=== PATIENT | male | born 1950 | race African-American/Black ===

== ENCOUNTER 2023-08-04 22:53 | Inpatient (IN) | payer OTHER ==
[2023-08-04 22:59] VITALS: BMI 22.6
[2023-08-04] MEDS ORDERED: ACETAMINOPHEN INJECTION 100 ML IVPB ONE (23:53)
[2023-08-04] MEDS ORDERED: ONDANSETRON 4 MG/2 ML VIAL ONE (23:53)
[2023-08-04] MEDS ORDERED: POLYETHYLENE GLYCOL (HEALTHYLAX) 3350 17 GM PACKET ONE (23:59)
[2023-08-05] MEDS: ACETAMINOPHEN 1000 MG/100 ML BAG IVPB ONE (00:43)
[2023-08-05] MEDS: POLYETHYLENE GLYCOL (HEALTHYLAX) 3350 17 GM PACKET PO ONE (00:43)
[2023-08-05] MEDS: ONDANSETRON 4 MG/2 ML VIAL IVPUSH ONE (00:43)
[2023-08-05 01:02] LABS: HEMATOCRIT 41.8 % (35.4-49); HEMOGLOBIN 14.3 GM/dL (11.7-16.9); MCH 27.4 pg (25.7-33.7); MCHC 34.1 g/dl (32.0-35.9); MEAN CELL VOLUME 80.3 fl (80-96); MEAN PLT VOLUME 8.9 fl (7.5-11.1); PLATELET COUNT 157 10^3/uL (134-434); RBC 5.21 M/mm3 (4.00-5.60); RDW 14.2 % (11.9-15.9); WHITE BLOOD COUNT 13.1 K/mm3 (4.0-10.0)
[2023-08-05 01:17] LABS: POTASSIUM 3.9 mmol/L (3.5-5.1)
[2023-08-05 01:19] LABS: CALCIUM 9.6 mg/dL (8.5-10.1)
[2023-08-05 01:20] LABS: ALBUMIN 3.5 g/dl (3.4-5.0); BLOOD UREA NITROGEN 31.3 mg/dL (7-18)
[2023-08-05 01:23] LABS: CREATININE 1.5 mg/dL (0.55-1.3)
[2023-08-05 01:24] LABS: TOT PROT 7.8 g/dl (6.4-8.2)
[2023-08-05 01:25] LABS: BILIRUBIN,TOTAL 1.2 mg/dL (0.2-1)
[2023-08-05 01:38] LABS: INR 1.15 (0.83-1.09); PROTHROMBIN TIME (PATIENT) 12.9 SEC (9.7-13.0)
[2023-08-05] MEDS ORDERED: VANCOMYCIN 1 GRAM (PRE-DOCKED) 1,000 MG/250 ML BAG IVPB ONE (02:59)
[2023-08-05] MEDS ORDERED: PIPERACILLIN/TAZOB 3.375 GM 3.375 GM/50 ML BAG IVPB ONE (02:59)
[2023-08-05] MEDS: PIPERACILLIN/TAZOB 3.375 GM 3.375 GM in DEXTROSE 5%-WATER - 50 ML IVPB ONE (03:13)
[2023-08-05 03:49] LABS: URINE APPEARANCE CLOUDY; URINE COLOR YELLOW
[2023-08-05 03:50] LABS: PH,URINE 5.5 (5.0-8.0); URINE BILIRUBIN NEGATIVE (NEGATIVE); URINE GLUCOSE (UA) NEGATIVE (NEGATIVE); URINE KETONE NEGATIVE (NEGATIVE)
[2023-08-05 03:51] LABS: URINE LEUK ESTERASE 1+ (NEGATIVE); URINE NITRITE Positive (NEGATIVE); URINE PROTEIN 2+ (NEGATIVE); URINE RBC 41.5 /uL (0-23.9)
[2023-08-05 03:52] LABS: EPI CELLS 3.2 /uL (0-25.1); HYALINE CASTS 1.6 /uL (0-3.1); URINE BACTERIA 18733.6 /uL (0-1359); URINE WBC 596.2 /uL (0-25.8)
[2023-08-05] MEDS: VANCOMYCIN 1,000 MG in DEXTROSE 5%-WATER - 250 ML IVPB ONE (03:56)
[2023-08-05] MEDS: SODIUM CHLORIDE 1,000 ML IV SCH (14:00)
[2023-08-05] MEDS: HEPARIN NA (PORCINE) 5,000 UNITS/ML 1ML VIAL SQ SCH (14:59)
[2023-08-05] MEDS: ACETAMINOPHEN 1000 MG/100 ML BAG IVPB PRN (21:07)
[2023-08-06 08:57] LABS: BASO % 0.4 % (0-2.0); EOS % 7.6 % (0-4.5); HEMATOCRIT 36.6 % (35.4-49); HEMOGLOBIN 12.3 GM/dL (11.7-16.9); LYMPH % 12.1 % (8-40); MCH 27.3 pg (25.7-33.7); MCHC 33.6 g/dl (32.0-35.9); MEAN PLT VOLUME 9.4 fl (7.5-11.1); MONO % 5.8 % (3.8-10.2); NEUT % 74.1 % (42.8-82.8); PLATELET COUNT 183 10^3/uL (134-434); RBC 4.52 M/mm3 (4.00-5.60); RDW 14.4 % (11.9-15.9)
[2023-08-06 09:14] LABS: POTASSIUM 3.8 mmol/L (3.5-5.1)
[2023-08-06 09:15] LABS: CALCIUM 9.2 mg/dL (8.5-10.1)
[2023-08-06 09:16] LABS: BLOOD UREA NITROGEN 26.8 mg/dL (7-18); MAGNESIUM 2.8 mg/dL (1.8-2.4)
[2023-08-06 09:19] LABS: CREATININE 1.4 mg/dL (0.55-1.3); PHOSPHOROUS 3.2 mg/dL (2.5-4.9)
[2023-08-06] MEDS: CEFTRIAXONE 1 GM in DEXTROSE 5%-WATER - 50 ML IVPB SCH (11:12)
[2023-08-07] MEDS: ACETAMINOPHEN 1000 MG/100 ML BAG IVPB ONE (02:03)
[2023-08-07 08:40] LABS: BASO % 0.3 % (0-2.0); EOS % 2.9 % (0-4.5); HEMATOCRIT 33.4 % (35.4-49); HEMOGLOBIN 11.3 GM/dL (11.7-16.9); LYMPH % 10.6 % (8-40); MCH 27.3 pg (25.7-33.7); MCHC 33.7 g/dl (32.0-35.9); MEAN CELL VOLUME 81.1 fl (80-96); MEAN PLT VOLUME 8.8 fl (7.5-11.1); MONO % 6.7 % (3.8-10.2); NEUT % 79.5 % (42.8-82.8); PLATELET COUNT 168 10^3/uL (134-434); RBC 4.12 M/mm3 (4.00-5.60); RDW 14.2 % (11.9-15.9); WHITE BLOOD COUNT 9.8 K/mm3 (4.0-10.0)
[2023-08-07 08:52] LABS: POTASSIUM 3.8 mmol/L (3.5-5.1)
[2023-08-07 08:57] LABS: BLOOD UREA NITROGEN 22.7 mg/dL (7-18); CALCIUM 8.9 mg/dL (8.5-10.1); MAGNESIUM 2.5 mg/dL (1.8-2.4)
[2023-08-07 09:01] LABS: CREATININE 1.1 mg/dL (0.55-1.3)
[2023-08-07 09:02] LABS: BILIRUBIN,TOTAL 0.7 mg/dL (0.2-1); TOT PROT 6.1 g/dl (6.4-8.2)
[2023-08-07 09:06] LABS: ALBUMIN 2.6 g/dl (3.4-5.0)
[2023-08-07] MEDS: DEXTROSE 5%-LACTATED RINGERS 1,000 ML IV SCH (16:40)
[2023-08-07] MEDS: ACETAMINOPHEN 1000 MG/100 ML BAG IVPB PRN (16:51)
[2023-08-07] MEDS: PIPERACILLIN/TAZOB 3.375 GM 3.375 GM in DEXTROSE 5%-WATER - 50 ML IVPB SCH (21:37)
[2023-08-08 07:52] LABS: BASO % 0.5 % (0-2.0); EOS % 1.1 % (0-4.5); HEMATOCRIT 36.2 % (35.4-49); HEMOGLOBIN 11.8 GM/dL (11.7-16.9); LYMPH % 11.2 % (8-40); MCH 26.6 pg (25.7-33.7); MCHC 32.8 g/dl (32.0-35.9); MEAN CELL VOLUME 81.4 fl (80-96); MEAN PLT VOLUME 8.4 fl (7.5-11.1); MONO % 7.6 % (3.8-10.2); NEUT % 79.6 % (42.8-82.8); PLATELET COUNT 179 10^3/uL (134-434); RBC 4.45 M/mm3 (4.00-5.60); RDW 14.1 % (11.9-15.9); WHITE BLOOD COUNT 8.4 K/mm3 (4.0-10.0)
[2023-08-08 08:11] LABS: POTASSIUM 3.6 mmol/L (3.5-5.1)
[2023-08-08 08:22] LABS: CALCIUM 8.7 mg/dL (8.5-10.1)
[2023-08-08 08:23] LABS: ALBUMIN 2.5 g/dl (3.4-5.0); BLOOD UREA NITROGEN 16.2 mg/dL (7-18)
[2023-08-08 08:26] LABS: BILIRUBIN,TOTAL 0.6 mg/dL (0.2-1); CREATININE 1.3 mg/dL (0.55-1.3); MAGNESIUM 2.3 mg/dL (1.8-2.4)
[2023-08-08 09:32] LABS: TOT PROT 6.3 g/dl (6.4-8.2)
[2023-08-08] MEDS ORDERED: FENTANYL CITRATE/PF 50 MCG/ML VIAL ONE ×5 (12:13→15:54)
[2023-08-08] MEDS ORDERED: PROPOFOL 20 ML ONE (12:14)
[2023-08-08] MEDS ORDERED: ROCURONIUM BROMIDE 50 MG/5 ML SYRINGE ONE (12:15)
[2023-08-08] MEDS ORDERED: HYDROmorphone HCl 2 MG/ML VIAL ONE (12:44)
[2023-08-08] MEDS ORDERED: DEXTROSE 5%-0.45% SALINE 1,000 ML IV SCH (13:00)
[2023-08-08] MEDS ORDERED: SEVOFLURANE 250 ML BTL ONE (13:47)
[2023-08-08] MEDS ORDERED: ETOMIDATE 20 MG/10 ML VIAL IVPUSH ONE (13:52)
[2023-08-08] MEDS ORDERED: SUGAMMADEX SODIUM 200 MG/2 ML VIAL ONE (13:55)
[2023-08-08] MEDS ORDERED: ONDANSETRON 4 MG/2 ML VIAL ONE (13:55)
[2023-08-08] MEDS ORDERED: ONDANSETRON 4 MG/2 ML VIAL IVPUSH PRN ×2 (14:21→14:49)
[2023-08-08] MEDS ORDERED: LACTATED RINGERS SOLUTION 1,000 ML IV SCH (14:30)
[2023-08-08] MEDS ORDERED: HYDROmorphone HCl 2 MG/ML VIAL IVPB PRN (14:49)
[2023-08-08] MEDS: ACETAMINOPHEN 1000 MG/100 ML BAG IVPB ONE (16:00)
[2023-08-08] MEDS: ACETAMINOPHEN INJECTION 100 ML IVPB ONE (16:00)
[2023-08-08] MEDS: DEXTROSE 5%-0.45% SALINE 1,000 ML IV SCH (16:45)
[2023-08-08] MEDS: HYDROmorphone *PCA* 10MG/50ML DISP.SYRIN PCA SCH (16:45)
[2023-08-08] MEDS: PIPERACILLIN/TAZOB 3.375 GM 3.375 GM in DEXTROSE 5%-WATER - 50 ML IVPB SCH (18:00)
[2023-08-08] MEDS: PIPERACILLIN/TAZOBACTAM 3.375 GM VIAL IVPB ONE (18:00)
[2023-08-08] MEDS: ACETAMINOPHEN 1000 MG/100 ML BAG IVPB SCH (22:00)
[2023-08-08] MEDS: HEPARIN NA (PORCINE) 5,000 UNITS/ML 1ML VIAL SQ SCH (22:01)
[2023-08-09 07:08] LABS: BASO % 0.3 % (0-2.0); EOS % 0.6 % (0-4.5); HEMATOCRIT 36.8 % (35.4-49); HEMOGLOBIN 11.9 GM/dL (11.7-16.9); LYMPH % 11.8 % (8-40); MCH 26.4 pg (25.7-33.7); MCHC 32.2 g/dl (32.0-35.9); MEAN CELL VOLUME 81.9 fl (80-96); MEAN PLT VOLUME 8.6 fl (7.5-11.1); MONO % 6.5 % (3.8-10.2); NEUT % 80.8 % (42.8-82.8); PLATELET COUNT 245 10^3/uL (134-434); RBC 4.49 M/mm3 (4.00-5.60); RDW 14.3 % (11.9-15.9); WHITE BLOOD COUNT 12.4 K/mm3 (4.0-10.0)
[2023-08-09 07:34] LABS: POTASSIUM 4.2 mmol/L (3.5-5.1)
[2023-08-09 07:37] LABS: ALBUMIN 2.4 g/dl (3.4-5.0); BLOOD UREA NITROGEN 17.5 mg/dL (7-18); CALCIUM 8.5 mg/dL (8.5-10.1); MAGNESIUM 2.2 mg/dL (1.8-2.4)
[2023-08-09 07:40] LABS: CREATININE 1.7 mg/dL (0.55-1.3)
[2023-08-09 07:42] LABS: BILIRUBIN,TOTAL 0.4 mg/dL (0.2-1); TOT PROT 6.1 g/dl (6.4-8.2)
[2023-08-09] MEDS: AMINO ACIDS 4.25%/D5W 1,000 ML IV SCH ×2 (13:17→17:48)
[2023-08-09] MEDS: DEXTROSE 5%-0.45% SALINE 1,000 ML IV SCH (17:49)
[2023-08-11 06:57] LABS: BASO % 0.4 % (0-2.0); HEMOGLOBIN 11.2 GM/dL (11.7-16.9); LYMPH % 19.4 % (8-40); MCH 26.6 pg (25.7-33.7); MCHC 32.1 g/dl (32.0-35.9); MEAN PLT VOLUME 8.6 fl (7.5-11.1); MONO % 5.5 % (3.8-10.2); NEUT % 64.7 % (42.8-82.8); PLATELET COUNT 252 10^3/uL (134-434); RBC 4.21 M/mm3 (4.00-5.60); RDW 14.6 % (11.9-15.9); WHITE BLOOD COUNT 9.3 K/mm3 (4.0-10.0)
[2023-08-11 07:05] LABS: POTASSIUM 3.6 mmol/L (3.5-5.1)
[2023-08-11 07:09] LABS: ALBUMIN 2.4 g/dl (3.4-5.0); BLOOD UREA NITROGEN 13.7 mg/dL (7-18); CALCIUM 8.8 mg/dL (8.5-10.1); MAGNESIUM 1.9 mg/dL (1.8-2.4)
[2023-08-11 07:13] LABS: BILIRUBIN,TOTAL 0.4 mg/dL (0.2-1); TOT PROT 6.2 g/dl (6.4-8.2)
[2023-08-11] MEDS: HYDROmorphone *PCA* 10MG/50ML DISP.SYRIN PCA SCH (17:32)
[2023-08-11] MEDS: DEXTROSE 5%-0.45% SALINE 1,000 ML IV SCH (17:33)
[2023-08-11] MEDS: KCL 10 MEQ IVPB 10 MEQ/100 ML INFUS.BAG IVPB SCH (17:34)
[2023-08-11] MEDS: PIPERACILLIN/TAZOB 3.375 GM 3.375 GM in DEXTROSE 5%-WATER - 50 ML IVPB SCH (17:52)
[2023-08-11] MEDS: AMINO ACIDS 4.25%/D5W 1,000 ML IV SCH (20:02)
[2023-08-11] MEDS: HEPARIN NA (PORCINE) 5,000 UNITS/ML 1ML VIAL SQ SCH (21:43)
[2023-08-11] MEDS: ACETAMINOPHEN 1000 MG/100 ML BAG IVPB SCH (21:43)
[2023-08-12] MEDS ORDERED: AMINO ACIDS 4.25%/D5W 1,000 ML IV SCH (04:46)
[2023-08-12 07:31] LABS: BASO % 0.5 % (0-2.0); EOS % 6.6 % (0-4.5); HEMATOCRIT 33.7 % (35.4-49); HEMOGLOBIN 11.1 GM/dL (11.7-16.9); LYMPH % 16.3 % (8-40); MCH 26.8 pg (25.7-33.7); MCHC 32.8 g/dl (32.0-35.9); MEAN CELL VOLUME 81.5 fl (80-96); MEAN PLT VOLUME 8.1 fl (7.5-11.1); NEUT % 71.6 % (42.8-82.8); PLATELET COUNT 275 10^3/uL (134-434); RBC 4.14 M/mm3 (4.00-5.60); RDW 14.1 % (11.9-15.9); WHITE BLOOD COUNT 8.6 K/mm3 (4.0-10.0)
[2023-08-12 07:57] LABS: CALCIUM 8.7 mg/dL (8.5-10.1)
[2023-08-12 07:58] LABS: ALBUMIN 2.3 g/dl (3.4-5.0); BLOOD UREA NITROGEN 14.6 mg/dL (7-18); MAGNESIUM 1.7 mg/dL (1.8-2.4)
[2023-08-12 08:01] LABS: CREATININE 0.8 mg/dL (0.55-1.3)
[2023-08-12 08:02] LABS: BILIRUBIN,TOTAL 0.6 mg/dL (0.2-1)
[2023-08-12 08:03] LABS: TOT PROT 5.9 g/dl (6.4-8.2)
[2023-08-12] MEDS: MAGNESIUM 1GM/D5W 100ML - 100 ML IVPB IVPB ONE (11:12)
[2023-08-12] MEDS: ACETAMINOPHEN 325 MG TABLET (FP) PO SCH (11:12)
[2023-08-12] MEDS: KCL 10 MEQ IVPB 10 MEQ/100 ML INFUS.BAG IVPB SCH (11:32)
[2023-08-12] MEDS ORDERED: oxyCODONE HCL 5 MG TABLET PO SCH (12:00)
[2023-08-12] MEDS: IBUPROFEN 200 MG TABLET PO SCH (14:15)
[2023-08-12] MEDS: oxyCODONE HCL 5 MG TABLET PO SCH ×2 (14:15→16:58)
[2023-08-12] MEDS ORDERED: HYDROmorphone HCl 2 MG/ML VIAL IVPB PRN (15:51)
[2023-08-12] MEDS ORDERED: oxyCODONE HCL 5 MG TABLET PO PRN (15:53)
[2023-08-12] MEDS ORDERED: ACETAMINOPHEN 1000 MG/100 ML BAG IVPB PRN (17:49)
[2023-08-12] MEDS: KETOROLAC TROMETHAMINE 30 MG/1 ML VIAL IVPUSH SCH (17:57)
[2023-08-12] MEDS: SODIUM CHLORIDE 1,000 ML IV SCH (18:41)
[2023-08-12] MEDS: LACTATED RINGERS SOLUTION 1,000 ML/1,000 ML INFUS.BAG IV STA (19:23)
[2023-08-12 20:28] LABS: BASO % 0.1 % (0-2.0); EOS % 0.8 % (0-4.5); HEMATOCRIT 35.9 % (35.4-49); HEMOGLOBIN 11.7 GM/dL (11.7-16.9); LYMPH % 7.6 % (8-40); MCHC 32.6 g/dl (32.0-35.9); MEAN CELL VOLUME 82.9 fl (80-96); MEAN PLT VOLUME 8.8 fl (7.5-11.1); NEUT % 88.5 % (42.8-82.8); PLATELET COUNT 327 10^3/uL (134-434); RBC 4.33 M/mm3 (4.00-5.60); RDW 14.7 % (11.9-15.9); WHITE BLOOD COUNT 9.4 K/mm3 (4.0-10.0)
[2023-08-12 20:44] LABS: CHLORIDE 79 mmol/L (98-107)
[2023-08-12 20:46] LABS: ALBUMIN 1.9 g/dl (3.4-5.0); CO2 22 mmol/L (21-32)
[2023-08-12 20:47] LABS: BLOOD UREA NITROGEN 12.7 mg/dL (7-18); MAGNESIUM 1.8 mg/dL (1.8-2.4)
[2023-08-12 20:50] LABS: SGOT/AST 26 U/L (15-37); SGPT/ALT 19 U/L (13-61)
[2023-08-12 20:51] LABS: BILIRUBIN,TOTAL 0.3 mg/dL (0.2-1); TOT PROT 5.4 g/dl (6.4-8.2)
[2023-08-12 20:52] LABS: ALK PHOS 132 U/L (45-117); ANION GAP 13 mmol/L (4-13); CALCIUM 7.3 mg/dL (8.5-10.1); GLUCOSE,RANDOM 696 mg/dL (74-106); POTASSIUM 2.8 mmol/L (3.5-5.1); SODIUM 113 mmol/L (136-145)
[2023-08-12] MEDS: GABAPENTIN 100 MG CAPSULE PO SCH (21:48)
[2023-08-12 22:05] LABS: BLOOD UREA NITROGEN 18.2 mg/dL (7-18)
[2023-08-12 22:08] LABS: CREATININE 0.9 mg/dL (0.55-1.3)
[2023-08-12 22:17] LABS: CALCIUM 9.3 mg/dL (8.5-10.1)
[2023-08-13] MEDS: KCL 10 MEQ IVPB 10 MEQ/100 ML INFUS.BAG IVPB SCH ×2 (02:55→11:28)
[2023-08-13 09:13] LABS: BASO % 0.7 % (0-2.0); EOS % 1.9 % (0-4.5); HEMATOCRIT 36.7 % (35.4-49); HEMOGLOBIN 12.2 GM/dL (11.7-16.9); LYMPH % 15.6 % (8-40); MCH 26.5 pg (25.7-33.7); MCHC 33.1 g/dl (32.0-35.9); MEAN CELL VOLUME 80.2 fl (80-96); MEAN PLT VOLUME 8.4 fl (7.5-11.1); MONO % 6.2 % (3.8-10.2); NEUT % 75.6 % (42.8-82.8); PLATELET COUNT 367 10^3/uL (134-434); RBC 4.58 M/mm3 (4.00-5.60); RDW 14.1 % (11.9-15.9); WHITE BLOOD COUNT 9.9 K/mm3 (4.0-10.0)
[2023-08-13 09:42] LABS: POTASSIUM 3.1 mmol/L (3.5-5.1)
[2023-08-13 09:49] LABS: BLOOD UREA NITROGEN 24.2 mg/dL (7-18); CALCIUM 9.3 mg/dL (8.5-10.1)
[2023-08-13 09:55] LABS: BILIRUBIN,TOTAL 0.4 mg/dL (0.2-1); TOT PROT 6.3 g/dl (6.4-8.2)
[2023-08-13 09:58] LABS: ALBUMIN 2.4 g/dl (3.4-5.0)
[2023-08-13] MEDS: POTASSIUM CHLORIDE 20 MEQ in AMINO ACIDS 4.25%/D5W 1,000 ML IV SCH (10:00)
[2023-08-13 17:17] LABS: INR 1.13 (0.83-1.09)
[2023-08-13 17:18] LABS: POTASSIUM 4.5 mmol/L (3.5-5.1)
[2023-08-13 17:20] LABS: BLOOD UREA NITROGEN 24.9 mg/dL (7-18)
[2023-08-13 17:24] LABS: CREATININE 1.2 mg/dL (0.55-1.3)
[2023-08-13 17:25] LABS: BILIRUBIN,TOTAL 0.4 mg/dL (0.2-1); TOT PROT 5.6 g/dl (6.4-8.2)
[2023-08-13 17:40] LABS: CALCIUM 7.6 mg/dL (8.5-10.1)
[2023-08-14 09:01] LABS: BASO % 0.7 % (0-2.0); EOS % 6.9 % (0-4.5); HEMATOCRIT 33.1 % (35.4-49); LYMPH % 19.5 % (8-40); MCH 26.6 pg (25.7-33.7); MCHC 33.1 g/dl (32.0-35.9); MEAN CELL VOLUME 80.2 fl (80-96); MEAN PLT VOLUME 8.3 fl (7.5-11.1); MONO % 8.3 % (3.8-10.2); NEUT % 64.6 % (42.8-82.8); PLATELET COUNT 342 10^3/uL (134-434); RBC 4.13 M/mm3 (4.00-5.60); RDW 14.2 % (11.9-15.9); WHITE BLOOD COUNT 6.6 K/mm3 (4.0-10.0)
[2023-08-14 09:18] LABS: POTASSIUM 3.3 mmol/L (3.5-5.1)
[2023-08-14 09:24] LABS: CALCIUM 8.5 mg/dL (8.5-10.1)
[2023-08-14 09:25] LABS: ALBUMIN 2.2 g/dl (3.4-5.0)
[2023-08-14 09:28] LABS: CREATININE 1.1 mg/dL (0.55-1.3)
[2023-08-14 09:30] LABS: BILIRUBIN,TOTAL 0.4 mg/dL (0.2-1); TOT PROT 5.7 g/dl (6.4-8.2)
[2023-08-14] MEDS: KCL 10 MEQ IVPB 10 MEQ/100 ML INFUS.BAG IVPB SCH (12:56)
[2023-08-14] MEDS ORDERED: FENTANYL CITRATE/PF 50 MCG/ML VIAL ONE ×3 (19:36→22:31)
[2023-08-14] MEDS ORDERED: LIDOCAINE HCL/PF 2% SDV 5ML VIAL ONE (19:36)
[2023-08-14] MEDS ORDERED: PROPOFOL 20 ML ONE ×2 (19:36→20:21)
[2023-08-14] MEDS ORDERED: ROCURONIUM BROMIDE 50 MG/5 ML SYRINGE ONE (19:36)
[2023-08-14] MEDS ORDERED: SUCCINYLCHOLINE CHLORIDE 200 MG/10 ML SYRINGE ONE (19:36)
[2023-08-14] MEDS ORDERED: HYDROmorphone HCl 2 MG/ML VIAL ONE (20:05)
[2023-08-14] MEDS ORDERED: ONDANSETRON 4 MG/2 ML VIAL IVPUSH PRN (21:57)
[2023-08-14 23:03] LABS: POTASSIUM 3.6 mmol/L (3.5-5.1)
[2023-08-14 23:04] LABS: BLOOD UREA NITROGEN 21.3 mg/dL (7-18); CALCIUM 8.9 mg/dL (8.5-10.1)
[2023-08-14 23:08] LABS: CREATININE 1.1 mg/dL (0.55-1.3)
[2023-08-14] MEDS ORDERED: HYDROmorphone *PCA* 10MG/50ML DISP.SYRIN ONE (23:19)
[2023-08-14] MEDS ORDERED: ACETAMINOPHEN INJECTION 100 ML IVPB ONE (23:23)
[2023-08-14] MEDS: HYDROmorphone *PCA* 10MG/50ML DISP.SYRIN PCA SCH (23:25)
[2023-08-14] MEDS: ACETAMINOPHEN 1000 MG/100 ML BAG IVPB SCH (23:40)
[2023-08-14] MEDS ORDERED: FAMOTIDINE 20 MG/50 ML IVPB 20 MG/50 ML MG IVPB ONE (23:41)
[2023-08-14] MEDS: FAMOTIDINE 20 MG/50 ML IVPB 20 MG/50 ML MG IVPB SCH (23:42)
[2023-08-15] MEDS: LACTATED RINGERS SOLUTION 1,000 ML IV SCH (00:47)
[2023-08-15] MEDS: PIPERACILLIN/TAZOB 3.375 GM 3.375 GM in DEXTROSE 5%-WATER - 50 ML IVPB SCH (01:40)
[2023-08-15] MEDS: KETOROLAC TROMETHAMINE 30 MG/1 ML VIAL IVPUSH SCH (03:40)
[2023-08-15 08:07] LABS: BASO % 0.2 % (0-2.0); EOS % 0.1 % (0-4.5); HEMATOCRIT 33.4 % (35.4-49); HEMOGLOBIN 10.6 GM/dL (11.7-16.9); LYMPH % 6.6 % (8-40); MCH 26.1 pg (25.7-33.7); MCHC 31.8 g/dl (32.0-35.9); MEAN CELL VOLUME 81.9 fl (80-96); MEAN PLT VOLUME 8.5 fl (7.5-11.1); MONO % 6.1 % (3.8-10.2); PLATELET COUNT 389 10^3/uL (134-434); RBC 4.08 M/mm3 (4.00-5.60); RDW 14.3 % (11.9-15.9); WHITE BLOOD COUNT 12.6 K/mm3 (4.0-10.0)
[2023-08-15] MEDS: POTASSIUM CHLORIDE 20 MEQ in AMINO ACIDS 4.25%/D5W 1,000 ML IV SCH (12:30)
[2023-08-15] MEDS: HEPARIN NA (PORCINE) 5,000 UNITS/ML 1ML VIAL SQ SCH (14:24)
[2023-08-15] MEDS: FAT EMULSION/OLIVE/SOY/PHOSPHO 250 ML IV SCH (21:42)
[2023-08-15] MEDS ORDERED: FAT EMULSION/OLIVE/SOY (CLINOLIPID) 250 ML EMULSION IV SCH (22:00)
[2023-08-16 09:58] LABS: BASO % 0.8 % (0-2.0); EOS % 5.4 % (0-4.5); HEMATOCRIT 30.4 % (35.4-49); HEMOGLOBIN 10.3 GM/dL (11.7-16.9); LYMPH % 13.1 % (8-40); MCH 27.2 pg (25.7-33.7); MCHC 33.8 g/dl (32.0-35.9); MEAN CELL VOLUME 80.4 fl (80-96); MEAN PLT VOLUME 8.3 fl (7.5-11.1); MONO % 7.3 % (3.8-10.2); NEUT % 73.4 % (42.8-82.8); PLATELET COUNT 424 10^3/uL (134-434); RBC 3.78 M/mm3 (4.00-5.60); RDW 14.8 % (11.9-15.9); WHITE BLOOD COUNT 9.4 K/mm3 (4.0-10.0)
[2023-08-16 10:35] LABS: POTASSIUM 3.8 mmol/L (3.5-5.1)
[2023-08-16 10:56] LABS: ALBUMIN 2.2 g/dl (3.4-5.0); BLOOD UREA NITROGEN 18.1 mg/dL (7-18); CALCIUM 8.7 mg/dL (8.5-10.1); MAGNESIUM 2.1 mg/dL (1.8-2.4)
[2023-08-16 11:02] LABS: BILIRUBIN,TOTAL 0.3 mg/dL (0.2-1)
[2023-08-17 08:00] LABS: BASO % 1.4 % (0-2.0); EOS % 6.7 % (0-4.5); HEMATOCRIT 28.8 % (35.4-49); HEMOGLOBIN 9.7 GM/dL (11.7-16.9); LYMPH % 18.7 % (8-40); MCH 27.1 pg (25.7-33.7); MCHC 33.5 g/dl (32.0-35.9); MEAN CELL VOLUME 80.8 fl (80-96); MEAN PLT VOLUME 8.5 fl (7.5-11.1); MONO % 7.7 % (3.8-10.2); NEUT % 65.5 % (42.8-82.8); PLATELET COUNT 443 10^3/uL (134-434); RBC 3.56 M/mm3 (4.00-5.60); RDW 14.6 % (11.9-15.9); WHITE BLOOD COUNT 7.2 K/mm3 (4.0-10.0)
[2023-08-17 08:16] LABS: POTASSIUM 3.5 mmol/L (3.5-5.1)
[2023-08-17 08:22] LABS: ALBUMIN 2.1 g/dl (3.4-5.0); BLOOD UREA NITROGEN 18.8 mg/dL (7-18); CALCIUM 8.6 mg/dL (8.5-10.1)
[2023-08-17 08:24] LABS: CREATININE 1.1 mg/dL (0.55-1.3)
[2023-08-17 08:25] LABS: BILIRUBIN,TOTAL 0.4 mg/dL (0.2-1)
[2023-08-17 08:27] LABS: TOT PROT 5.8 g/dl (6.4-8.2)
[2023-08-17] MEDS: KCL 10 MEQ IVPB 10 MEQ/100 ML INFUS.BAG IVPB SCH (10:20)
[2023-08-17] MEDS ORDERED: ACETAMINOPHEN 1000 MG/100 ML BAG IVPB PRN (16:26)
[2023-08-18 08:02] LABS: BASO % 2.2 % (0-2.0); EOS % 8.2 % (0-4.5); HEMATOCRIT 31.5 % (35.4-49); HEMOGLOBIN 10.6 GM/dL (11.7-16.9); LYMPH % 21.2 % (8-40); MCHC 33.6 g/dl (32.0-35.9); MEAN CELL VOLUME 80.3 fl (80-96); MEAN PLT VOLUME 8.2 fl (7.5-11.1); MONO % 8.4 % (3.8-10.2); PLATELET COUNT 485 10^3/uL (134-434); RBC 3.93 M/mm3 (4.00-5.60); RDW 14.7 % (11.9-15.9); WHITE BLOOD COUNT 6.8 K/mm3 (4.0-10.0)
[2023-08-18 08:25] LABS: POTASSIUM 3.9 mmol/L (3.5-5.1)
[2023-08-18 08:27] LABS: CALCIUM 8.5 mg/dL (8.5-10.1)
[2023-08-18 08:28] LABS: ALBUMIN 2.3 g/dl (3.4-5.0); BLOOD UREA NITROGEN 17.4 mg/dL (7-18)
[2023-08-18 08:32] LABS: BILIRUBIN,TOTAL 0.3 mg/dL (0.2-1); CREATININE 0.9 mg/dL (0.55-1.3); TOT PROT 6.3 g/dl (6.4-8.2)
[2023-08-19 08:19] LABS: BASO % 2.3 % (0-2.0); EOS % 7.4 % (0-4.5); HEMATOCRIT 31.5 % (35.4-49); HEMOGLOBIN 10.7 GM/dL (11.7-16.9); LYMPH % 23.5 % (8-40); MCH 27.1 pg (25.7-33.7); MCHC 33.9 g/dl (32.0-35.9); MEAN CELL VOLUME 79.8 fl (80-96); MEAN PLT VOLUME 8.4 fl (7.5-11.1); MONO % 8.8 % (3.8-10.2); PLATELET COUNT 492 10^3/uL (134-434); RBC 3.95 M/mm3 (4.00-5.60); RDW 14.4 % (11.9-15.9); WHITE BLOOD COUNT 6.9 K/mm3 (4.0-10.0)
[2023-08-19 08:41] LABS: POTASSIUM 4.2 mmol/L (3.5-5.1)
[2023-08-19 08:47] LABS: ALBUMIN 2.3 g/dl (3.4-5.0)
[2023-08-19 08:48] LABS: BLOOD UREA NITROGEN 18.8 mg/dL (7-18); CALCIUM 8.7 mg/dL (8.5-10.1)
[2023-08-19 08:50] LABS: CREATININE 0.9 mg/dL (0.55-1.3)
[2023-08-19 08:52] LABS: BILIRUBIN,TOTAL 0.4 mg/dL (0.2-1); TOT PROT 6.3 g/dl (6.4-8.2)
[2023-08-19] MEDS: POTASSIUM CHLORIDE 40 MEQ in AMINO ACIDS 4.25%/D5W 2,000 ML IV SCH (12:41)
[2023-08-20 08:05] LABS: BASO % 1.8 % (0-2.0); EOS % 7.2 % (0-4.5); HEMATOCRIT 32.3 % (35.4-49); HEMOGLOBIN 10.6 GM/dL (11.7-16.9); MCH 26.5 pg (25.7-33.7); MCHC 32.8 g/dl (32.0-35.9); MEAN CELL VOLUME 80.7 fl (80-96); MEAN PLT VOLUME 8.1 fl (7.5-11.1); MONO % 10.3 % (3.8-10.2); NEUT % 55.7 % (42.8-82.8); PLATELET COUNT 502 10^3/uL (134-434); RBC 4.01 M/mm3 (4.00-5.60); RDW 14.5 % (11.9-15.9); WHITE BLOOD COUNT 7.1 K/mm3 (4.0-10.0)
[2023-08-20 08:41] LABS: CALCIUM 9.1 mg/dL (8.5-10.1)
[2023-08-20 08:42] LABS: ALBUMIN 2.5 g/dl (3.4-5.0)
[2023-08-20 08:45] LABS: CREATININE 0.9 mg/dL (0.55-1.3)
[2023-08-20 08:46] LABS: TOT PROT 6.7 g/dl (6.4-8.2)
[2023-08-20 08:47] LABS: BILIRUBIN,TOTAL 0.4 mg/dL (0.2-1)
[2023-08-20] MEDS: PIPERACILLIN/TAZOB 3.375 GM 3.375 GM in DEXTROSE 5%-WATER - 50 ML IVPB SCH (09:34)
[2023-08-20] MEDS ORDERED: PIPERACILLIN/TAZOB 3.375 GM 3.375 GM in DEXTROSE 5%-WATER - 50 ML IVPB SCH (10:00)
[2023-08-20] MEDS: LACTOBACILLUS ACIDOPHILUS 1 TABLET PO SCH (10:47)
[2023-08-20] MEDS: FAMOTIDINE 20 MG TABLET PO SCH (10:47)
[2023-08-20] MEDS: AMOX TR/POT CLAV 875MG/125MG TABLETS (FP) PO SCH (17:52)
[2023-08-20 22:03] VITALS: RESP 18
[2023-08-22 08:15] LABS: BASO % 1.3 % (0-2.0); HEMATOCRIT 30.8 % (35.4-49); HEMOGLOBIN 10.7 GM/dL (11.7-16.9); LYMPH % 27.5 % (8-40); MCH 27.7 pg (25.7-33.7); MCHC 34.6 g/dl (32.0-35.9); MEAN PLT VOLUME 8.5 fl (7.5-11.1); MONO % 10.2 % (3.8-10.2); PLATELET COUNT 479 10^3/uL (134-434); RBC 3.86 M/mm3 (4.00-5.60); RDW 14.5 % (11.9-15.9); WHITE BLOOD COUNT 6.1 K/mm3 (4.0-10.0)
[2023-08-22 08:28] LABS: POTASSIUM 4.5 mmol/L (3.5-5.1)
[2023-08-22 08:38] LABS: ALBUMIN 2.5 g/dl (3.4-5.0)
[2023-08-22 08:43] LABS: BILIRUBIN,TOTAL 0.5 mg/dL (0.2-1); TOT PROT 6.7 g/dl (6.4-8.2)
[2023-08-23 08:10] LABS: BASO % 2.4 % (0-2.0); EOS % 10.9 % (0-4.5); HEMATOCRIT 31.6 % (35.4-49); HEMOGLOBIN 10.3 GM/dL (11.7-16.9); LYMPH % 35.8 % (8-40); MCH 26.2 pg (25.7-33.7); MCHC 32.6 g/dl (32.0-35.9); MEAN CELL VOLUME 80.3 fl (80-96); MEAN PLT VOLUME 8.7 fl (7.5-11.1); MONO % 9.1 % (3.8-10.2); NEUT % 41.8 % (42.8-82.8); PLATELET COUNT 493 10^3/uL (134-434); RBC 3.93 M/mm3 (4.00-5.60); RDW 14.3 % (11.9-15.9); WHITE BLOOD COUNT 5.6 K/mm3 (4.0-10.0)
[2023-08-23 08:23] LABS: POTASSIUM 4.7 mmol/L (3.5-5.1)
[2023-08-23 08:26] LABS: ALBUMIN 2.7 g/dl (3.4-5.0); BLOOD UREA NITROGEN 13.2 mg/dL (7-18); CALCIUM 9.3 mg/dL (8.5-10.1); MAGNESIUM 2.4 mg/dL (1.8-2.4)
[2023-08-23 08:30] LABS: CREATININE 1.1 mg/dL (0.55-1.3)
[2023-08-23 08:31] LABS: BILIRUBIN,TOTAL 0.4 mg/dL (0.2-1); TOT PROT 6.8 g/dl (6.4-8.2)
[2023-08-23 14:55] VITALS: BP 107/61; PULSE 81; TEMP 97.7
== END 2023-08-23 17:39 | disposition home or self-care (01) | DRG 225 ==
LOC: JER 22:53 → JERBED 08-05 04:36 → J8W 08-05 09:32 → J2W 08-08 17:49 → J8W 08-11 17:21
PROVIDERS: ADMIT Student in an Organized Health Care Education/Training Program; ATTEND Nurse Practitioner Family
PROC: 0W9G00Z Drainage of Peritoneal Cavity with Drainage Device, Open Approach (ICD-10-PCS; 2023-08-08)
PROC: 0DTJ0ZZ Resection of Appendix, Open Approach (ICD-10-PCS; principal; 2023-08-08 10:30)
DX: K56.609 Unspecified intestinal obstruction, unspecified as to partial versus complete obstruction (principal); K35.33 Acute appendicitis with perforation, localized peritonitis, and gangrene, with abscess; N39.0 Urinary tract infection, site not specified; T83.511A Infection and inflammatory reaction due to indwelling urethral catheter, initial encounter; B96.20 Unspecified Escherichia coli [E. coli] as the cause of diseases classified elsewhere; E87.6 Hypokalemia; Y83.9 Surgical procedure, unspecified as the cause of abnormal reaction of the patient, or of later complication, without mention of misadventure at the time of the procedure; R33.9 Retention of urine, unspecified; I10 Essential (primary) hypertension; K91.89 Other postprocedural complications and disorders of digestive system; K56.7 Ileus, unspecified
CPT/HCPCS: 36415; 71045-TC-FY; 71046-TC-FY; 74018-TC-FY; 74019-TC-FY; 74177-TC; 74250-TC-FY; 76775-TC; 80048; 80053; 81003; 82272; 82570; 82962; 83605; 83690; 83735; 84100; 84156; 84300; 84443; 84478; 84484; 85025; 85610; 86140; 86850; 86870; 86880; 86900; 86901; 86902; 87040; 87070; 87076; 87086; 87186; 87205; 88304-TC; 93005; 93010; 94010; 94760; 97116-GP; 97162-GP; 99285-25; J0131; J1644; Q9967